=== PATIENT | female | born 1980 | race Caucasian/White ===

== ENCOUNTER 2017-03-25 10:53 | Emergency (ER) | payer OTHER ==
[2017-03-25] MEDS ORDERED: IBUPROFEN 600 MG TABLET PO ONE (11:25)
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
[2017-03-25 12:31] VITALS: BP 109/61
== END 2017-03-25 12:30 | disposition home or self-care (01) ==
LOC: ER 10:53
DX: S16.1XXA Strain of muscle, fascia and tendon at neck level, initial encounter (principal); T22.011A Burn of unspecified degree of right forearm, initial encounter; T22.012A Burn of unspecified degree of left forearm, initial encounter; T23.071A Burn of unspecified degree of right wrist, initial encounter; T23.072A Burn of unspecified degree of left wrist, initial encounter; S30.0XXA Contusion of lower back and pelvis, initial encounter; V47.5XXA Car driver injured in collision with fixed or stationary object in traffic accident, initial encounter; W22.11XA Striking against or struck by driver side automobile airbag, initial encounter; M54.2 Cervicalgia; M25.552 Pain in left hip; M79.641 Pain in right hand; M79.642 Pain in left hand; M54.5 Low back pain; F17.210 Nicotine dependence, cigarettes, uncomplicated; Z71.6 Tobacco abuse counseling; Z88.0 Allergy status to penicillin
CPT/HCPCS: 99284